=== PATIENT | male | born 1950 | race Caucasian/White ===

== ENCOUNTER → 2024-11-04 11:21 | Outpatient (BNVA) | payer MEDICARE, SELFPAY | PROVIDERS: PCP Orthopaedic Surgery; Visit Provider Orthopaedic Surgery | DX: Z01.818 Encounter for other preprocedural examination (principal); M54.9 Dorsalgia, unspecified; M43.16 Spondylolisthesis, lumbar region | CPT/HCPCS: 36415; 72072; 72110; 80053; 81001; 85025; 99204 ==

== ENCOUNTER 2025-01-10 06:24 | Day surgery (SDC) | payer MEDICARE, SELFPAY ==
[2025-01-10] VITALS (10 sets, daily range): BP systolic 110–134; BP diastolic 50–66; PULSE 40–61; RESP 12–100; TEMP 35.7–36.4; O2SAT 97–100; BMI 27.6
--- NOTE | 2025-01-10 06:58 | P.ANESASSM_ITS ---
Pre-Anesthetic Assessment Height/Weight: Height 1.78 m Weight 87.543 kg O2 Del Method Room Air 01/10/25 06:48 Preop Diagnosis: Lumbar stenosis with neurogenic claudication Operation Date: 01/10/25 08:20 Proposed Procedures p Implantation of Neurostimulator Paddle(Not Applicable) - Montez Jenkins DO s Spinal Cord Stimulator Placement(Not Applicable) - Montez Jenkins DO Familial anesthetic complications: None Was Beta Mainor taken within 24 hours: N/A Was Clonidine taken within 24 hours: N/A Last intake: Intake Last Liquid Date 01/09/25 Last Liquid Time 21:30 Last Solid Date 01/09/25 Last Solid Time 21:30 Social No alcohol and No tobacco Exam alert, oriented x 3, clear to auscultation bilaterally and regular rate & rhythm Airway Mallampati: Class I Dentition: full CV/HEM Arrythmia (states he's had low HR in the past. Will get EKG today) Metabolic Thyroid Disease Anesthetic Plan ASA status: 2 Anesthesia: General Risk of > 500 ml blood loss (7ml/kg in children): No Medications/Allergies Home Medications ?Medication ?Instructions ?Recorded ?Confirmed ?Last Taken ?Type adalimumab 40 mg/0.8 mL 40 mg SUBCUT .[id number] 01/07/25 12/25/24 History subcutaneous syringe kit (Humira) celecoxib 100 mg capsule 100 mg PO BID 01/07/2501/0701/07/25 History gabapentin 300 mg capsule 600 mg PO .QHS 01/07/2512/2101/07/25 History levothyroxine 100 mcg tablet 100 mcg PO DAILY 01/07/25 01/07/25 01/07/25 History (Synthroid) sildenafil 50 mg tablet 50 mg PO PRN PRN Sexual Acti vity 01/07/25 01/07/25 Unknown History tamsulosin 0.4 mg capsule 0.4 mg PO DAILY 01/07/2501/07/25 History trazodone 50 mg tablet 100 mg PO .QHS 01/07/2512/2101/07/25 History Allergies Allergy/AdvReac Type Severity Reaction Status Date / Time No Known Drug Allergies Allergy Unknown Verified 01/10/25 06:56 [facility] Anesthesia Social History Smoking and tobacco/nicotine status: never used tobacco/nicotine
--- NOTE | 2025-01-10 07:05 | ECG_ITS ---
[facility] Test Date: 2025-01-10 Pat Name: Osiel Cortes Department: Room: Gender: Male Conversion Developer: : 1950 Requested By: Dunia Mccallum Order Number: [id number] Shona MD: Ky Woodruff M.D. Measurements Intervals Chapman Rate: 45 P: 69 MI: 185 QRS: -15 QRSD: 90 T: 39 QT: 452 QTc: 393 Interpretive Statements SINUS BRADYCARDIA WITH OCCASIONAL SUPRAVENTRICULAR PREMATURE COMPLEXES No previous ECG available for comparison Electronically Signed On 01-10-2025 17:13:00 CDT by Ky Woodruff M.D. [email or web address]
--- NOTE | 2025-01-10 08:31 | W.PM.OPSFHP ---
Same Day Surgery H&P Indication for Procedure/HPI DATE OF PROCEDURE: January 10, 2025 CHIEF COMPLAINT/INDICATIONFOR SURGICAL PROCEDURE: Back and leg pain PREOP DIAGNOSIS: Lumbar stenosis with neurogenic claudication PLANNED PROCEDURE: Operation Date: 01/10/25 08:20 Proposed Procedures p Implantation of Neurostimulator Paddle(Not Applicable) - Montez Jenkins, DO s Spinal Cord Stimulator Placement(Not Applicable) - Montez Jenkins, DO Medications/Allergies* Home Medications ?Medication ?Instructions ?Recorded ?Confirmed ?Type adalimumab 40 mg/0.8 mL 40 mg SUBCUT .[id number] 01/07/25 01/10/25 History subcutaneous syringe kit (Humira) celecoxib 100 mg capsule 100 mg PO BID 01/07/25 01/10/25 History gabapentin 300 mg capsule 600 mg PO .QHS 01/07/25 01/10/25 History levothyroxine 100 mcg tablet 100 mcg PO DAILY 01/07/25 01/10/25 History (Synthroid) sildenafil 50 mg tablet 50 mg PO PRN PRN Sexual Activity 01/07/25 01/10/25 History tamsulosin 0.4 mg capsule 0.4 mg PO DAILY 01/07/25 01/10/25 History trazodone 50 mg tablet 100 mg PO .QHS 01/07/25 01/10/25 History Allergies/Adverse Reactions Allergy/AdvReac Type Severity Reaction Status Date / Time No Known Drug Allergies Allergy Unknown Verified 01/10/25 06:56 Current Medications: Generic Name Dose Route Start Last Admin Trade Name Freq PRN Reason Stop Dose Admin Sodium Chloride 1,000 mls @ 30 mls/hr 01/10/25 07:30 01/10/25 07:38 Sodium Chloride 0.9% IV 01/11/25 07:29 30 mls/hr .Q24H ANNA Administration Pertinent History/Comorbid Conditions* Social History Smoking and tobacco/nicotine status: never used tobacco/nicotine Pertinent Exam Findings alert, oriented x 3 and procedure specific exam findings Recommendations Risks and benefits of procedure reviewed Surgery/Procedure today Coding Level of Care Code Acute Code for David Lenz
[2025-01-10] MEDS: ceFAZolin 2,000 mg SDV 2000 MG IVP (09:06)
[2025-01-10] MEDS: lidocaine-epi 1% 20 mL INJ INJECTION (10:00)
--- NOTE | 2025-01-10 10:26 | PM.OP ---
Operative Report Date of procedure: January 10, 2025 Pre-op diagnosis: L4/5 spondylolisthesis; lumbar stenosis with neurogenic claudication Post-op diagnosis: same Procedure done: 1. Neurostimulator paddle placement 2. Neurostimulator generator placement Surgeon: Montez Jenkins DO Estimated blood loss (mL): 10 Procedure: 1. Neurostimulator paddle placement 2. Neurostimulator generator placement Patient is brought to the operative suite after undergoing anesthesia was placed in the prone position. All areas impingement well-padded. Patient's prepped and draped normal sterile fashion. Skin incision was made over the thoracic spine. Laminectomy was performed at the T10-11 level. This was done by making skin incision over this level. Subperiosteal dissection was made down to T10-T11 transverse processes. Laminectomy deformities and high-speed bur curved curettes and Kerrison rongeurs. Ligamentum flavum was taken down. And then the trial was passed. And then the neurostimulator paddle was then placed nursing home up the T8 vertebrae. This is confirmed under C-arm guidance.. Next tension was brought to making the pocket for the battery. Skin incision was made and the pocket was made with the Bovie undermining the fatty tissue. Wire passer was then passed from the pocket to where the wires were. The wires were then brought down into the pocket. And then connected to the battery. Is confirmed the battery is working. And the battery is placed in the pocket. Wounds are closed with Vicryl and Monocryl suture. Sterile dressings were applied patient is transferred to the PACU in stable condition.
--- NOTE | 2025-01-10 10:50 | PC.NURSE ---
1023 - upon arrival to pacu - anesthesia states abrasion on bridge of nose - small abrasion noted per this nurse
--- NOTE | 2025-01-10 12:00 | ANE.PACU2 ---
Inpatient post-anesthesia follow up: Airway intact: Yes Vital signs: Temperature 96.5 F Pulse Rate 46 Respiratory Rate 100 Blood Pressure 134/58 Pulse Oximetry 100 Oxygen Delivery Me thod Room Air Oxygen Flow Rate Fraction of Inspir ed Oxygen Hydration adequate: Yes Nausea and vomiting: No Pain level: 1 Mental status: Baseline
--- NOTE | 2025-01-10 16:52 | XR_ITS ---
WS: [id number] C-ARM RADIOGRAPHS LUMBAR SPINE; 2 IMAGES HISTORY: DREW PICS COMPARISON: None available. Intraoperative imaging during procedure. Procedure appears to be placement of a dorsal column stimulator. XR/XR lumbar spine 2-3V* [id number] IMPRESSION: Intraoperative imaging during dorsal column stimulator.
== END 2025-01-10 12:05 | disposition home or self-care (01) ==
PROVIDERS: PCP Orthopaedic Surgery; Visit Provider Orthopaedic Surgery
PROC: (CPT 63655; principal; 2025-01-10 08:10)
PROC: (CPT 63685; 2025-01-10 08:10)
DX: M48.062 Spinal stenosis, lumbar region with neurogenic claudication (principal); M43.16 Spondylolisthesis, lumbar region
CPT/HCPCS: 63685; 63655; 72100; 76000; 93005; C1713; J0690; J1100; J2405; J2704; J3010; J3373; J3490; J7030; J9999

== ENCOUNTER → 2025-02-08 12:44 | Outpatient (BNVA) | payer MEDICARE, SELFPAY | PROVIDERS: PCP Orthopaedic Surgery; Visit Provider Orthopaedic Surgery | DX: Z98.890 Other specified postprocedural states (principal) | CPT/HCPCS: 99024 ==

== ENCOUNTER → 2025-02-22 12:42 | Outpatient (BNVA) | payer MEDICARE, SELFPAY | PROVIDERS: Visit Provider Orthopaedic Surgery | DX: Z98.890 Other specified postprocedural states (principal); Z48.89 Encounter for other specified surgical aftercare | CPT/HCPCS: 99024 ==

== ENCOUNTER → 2025-03-08 10:17 | Outpatient (BNVA) | payer MEDICARE, SELFPAY | PROVIDERS: Visit Provider Orthopaedic Surgery | DX: Z98.890 Other specified postprocedural states (principal); T81.49XA Infection following a procedure, other surgical site, initial encounter; Z48.89 Encounter for other specified surgical aftercare | CPT/HCPCS: 99024 ==